=== PATIENT | female | born 1960 | race Asian ===

== ENCOUNTER 2017-02-21 05:15 | Emergency (ER) | payer BC ==
[~2017-02-21] VITALS: Ht 162.6 cm; Wt 91.0 kg
[~2017-02-21 05:15] MED LIST: LOSA100T14 PO
[2017-02-21] MEDS ORDERED: ONDANSETRON HCL 4MG/2ML VIAL IV STA (07:23)
[2017-02-21] MEDS ORDERED: MORPHINE SULFATE 4 MG/ML CPJ (NOT FOR IM USE) IV STA (07:23)
[2017-02-21 07:40] LABS: EOSINOPHILS % 2.5 % (0.0-5.0); HEMOGLOBIN. 13.7 g/dL (12.0-16.0); LYMPHOCYTES % 10.6 % (20.0-50.0); MEAN CORPUSCULAR HEMOGLOBIN 29.5 pg (28.0-32.0); MEAN CORPUSCULAR HGB CONC 34.2 g/dL (31.0-37.0); MEAN CORPUSCULAR VOLUME 86.2 fL (81.0-99.0); MONOCYTES % 3.7 % (2.0-8.0); NEUTROPHILS % 82.2 % (40.0-76.0); PLATELET 246 x1000/uL (130-400); RED BLOOD CELL COUNT 4.65 mill/uL (4.2-5.4); RED CELL DISTRIBUTION WIDTH 12.7 % (11.6-14.6); WHITE BLOOD COUNT 12.7 x1000/uL (4.5-11.0)
[2017-02-21 07:55] LABS: ALANINE AMINOTRANSFERASE 25 IU/L (13-61); ALBUMIN 3.5 g/dL (3.4-5.0); ANION GAP 13; CALCIUM 9.5 mg/dL (8.5-10.1); CARBON DIOXIDE 25 mEq/L (21-32); CHLORIDE 107 mEq/L (98-107); INDEX HEMOLYSI 1 (1-3); INDEX ICTERIC 1 (1-4); INDEX LIPEMIC 1 (1-3); LIPASE 386 IU/L (73-393); UREA NITROGEN BLOOD 18 mg/dL (7-21); eGFR 43 mL/min (>60)
[2017-02-21 08:33] LABS: CLARITY URINE CLEAR (CLEAR); COLOR URINE YELLOW (YELLOW); GLUCOSE URINE NEGATIVE (NEGATIVE); KETONES URINE NEGATIVE (NEGATIVE); LEUKOCYTE ESTERASE URINE NEGATIVE (NEGATIVE); NITRITE URINE NEGATIVE (NEGATIVE); OCCULT BLOOD URINE NEGATIVE (NEGATIVE); PROTEIN URINE NEGATIVE (NEGATIVE); UROBILINOGEN URINE 0.2 E.U./dL (0.2-1.0)
[2017-02-21] MEDS ORDERED: MORPHINE SULFATE 4 MG/ML CPJ (NOT FOR IM USE) IV ONE (10:00)
[2017-02-21] MEDS ORDERED: VISCOUS LIDOCAINE 2% 15 ML UDC MM ONE (11:00)
[2017-02-21] MEDS ORDERED: MAGNESIUM/ALUMINUM HYDROXIDE/SIMETHICONE 30ML UDC PO ONE (11:00)
[2017-02-21 12:27] VITALS: BP 127/91
[2017-02-21] MEDS ORDERED: PANTOPRAZOLE SODIUM 40 MG/VIAL IV ONE (13:00)
== END 2017-02-21 13:19 | disposition home or self-care (01) ==
LOC: ER 05:16
DX: K29.00 Acute gastritis without bleeding (principal); R10.13 Epigastric pain; I10 Essential (primary) hypertension
CPT/HCPCS: 36415; 74176; 76705; 80053; 81003; 83690; 85025; 96374; 96375; 96376; 99285; J2270; J2405; Z7610; C9113

== ENCOUNTER → 2017-03-04 | Outpatient (CLI) | payer BC | END | disposition home or self-care (01) | LOC: MAMMO 11:08 | PROVIDERS: ATTEND Internal Medicine | DX: Z12.31 Encounter for screening mammogram for malignant neoplasm of breast (principal) | CPT/HCPCS: G0202 ==

== ENCOUNTER → 2017-09-29 | Outpatient (CLI) | payer BC ==
[2017-09-29 20:38] LABS: BASOPHILS % 1.1 % (0.0-2.0); EOSINOPHILS % 5.4 % (0.0-5.0); HEMATOCRIT. 34.9 % (36.0-48.0); LYMPHOCYTES % 28.5 % (20.0-50.0); MEAN CORPUSCULAR HEMOGLOBIN 28.9 pg (28.0-32.0); MEAN CORPUSCULAR VOLUME 84.1 fL (81.0-99.0); MEAN PLATELET VOLUME 8.3 fl (7.4-10.4); MONOCYTES % 5.9 % (2.0-8.0); NEUTROPHILS % 59.1 % (40.0-76.0); PLATELET 262 x1000/uL (130-400); RED BLOOD CELL COUNT 4.15 mill/uL (4.2-5.4); RED CELL DISTRIBUTION WIDTH 13.4 % (11.6-14.6)
[2017-09-29 20:44] LABS: CLARITY URINE CLEAR (CLEAR); COLOR URINE YELLOW (YELLOW); GLUCOSE URINE NEGATIVE (NEGATIVE); KETONES URINE NEGATIVE (NEGATIVE); LEUKOCYTE ESTERASE URINE TRACE (NEGATIVE); NITRITE URINE NEGATIVE (NEGATIVE); OCCULT BLOOD URINE NEGATIVE (NEGATIVE); PH URINE 5.5 (4.5-8.0); PROTEIN URINE NEGATIVE (NEGATIVE); UROBILINOGEN URINE 0.2 E.U./dL (0.2-1.0)
[2017-09-29 20:47] LABS: CHLORIDE 107 mEq/L (98-107)
[2017-09-29 20:58] LABS: CARBON DIOXIDE 24 mEq/L (21-32); HDL CHOLESTEROL 45 mg/dL (40-59); LDL CHOLESTEROL 92 mg/dL (5-100)
[2017-10-01 13:12] LABS: VITAMIN D 25-OH 67.2 ng/mL (30.0-100.0)
[2017-10-01 19:12] LABS: ANTI-DNA DOUBLE STRANDED QUANT 1 IU/mL (0-9); ANTI-NUCLEAR ANTIBODIES DIRECT Positive (Negative)
[2017-10-02 05:32] LABS: COMPLEMENT C3 145 mg/dL (82-167)
[2017-10-02 19:12] LABS: RNP ANTIBODY < 0.2 AI (0.0-0.9); SJOGRENS ANTI SS-B < 0.2 AI (0.0-0.9); SMITH ANTIBODY < 0.2 AI (0.0-0.9)
== END | disposition home or self-care (01) ==
LOC: LAB 15:58
PROVIDERS: ATTEND Internal Medicine
DX: E66.9 Obesity, unspecified (principal); R80.9 Proteinuria, unspecified; R76.0 Raised antibody titer
CPT/HCPCS: 36415; 80053; 80061; 81001; 82306; 84443; 84550; 85025; 86038; 86160; 86225; 86235

== ENCOUNTER → 2017-09-30 | Outpatient (CLI) | payer BC | END | disposition home or self-care (01) | LOC: US 16:00 | PROVIDERS: ATTEND Internal Medicine | DX: I12.9 Hypertensive chronic kidney disease with stage 1 through stage 4 chronic kidney disease, or unspecified chronic kidney disease (principal); N18.3 Chronic kidney disease, stage 3 (moderate); M79.605 Pain in left leg | CPT/HCPCS: 36415; 83970; 93971 ==

== ENCOUNTER → 2017-10-09 | Outpatient (CLI) | payer BC | END | disposition home or self-care (01) | LOC: LAB 14:44 | PROVIDERS: ATTEND Internal Medicine | DX: I12.9 Hypertensive chronic kidney disease with stage 1 through stage 4 chronic kidney disease, or unspecified chronic kidney disease (principal); N18.3 Chronic kidney disease, stage 3 (moderate) | CPT/HCPCS: 82570; 84156 ==

== ENCOUNTER → 2018-02-04 | Outpatient (CLI) | payer BC ==
[2018-02-04 21:45] LABS: CHLORIDE 109 mEq/L (98-107)
[2018-02-04 21:54] LABS: C REACTIVE PROTEIN QUANT 2.3 mg/L (0.0-3.0)
== END | disposition home or self-care (01) ==
LOC: LAB 20:39
PROVIDERS: ATTEND Internal Medicine
DX: M10.072 Idiopathic gout, left ankle and foot (principal)
CPT/HCPCS: 36415; 80053; 84550; 85651; 86140

== ENCOUNTER → 2018-07-04 | Emergency (ER) | payer BC, OTHER ==
[~2018-07-04] VITALS: Ht 162.6 cm; Wt 90.0 kg
[2018-07-04 16:15] VITALS: BP 132/76
[2018-07-04 17:15] LABS: HEPATITIS B SURFACE ANTIGEN NEGATIVE
== END | disposition left against medical advice (07) ==
LOC: ER 22:02
DX: Z53.21 Procedure and treatment not carried out due to patient leaving prior to being seen by health care provider (principal)
CPT/HCPCS: 36415; 86703; 86803; 87340; 99284

== ENCOUNTER → 2018-09-15 | Outpatient (CLI) | payer BC ==
[2018-09-15 12:56] LABS: BASOPHILS % 1.3 % (0.0-2.0); EOSINOPHILS % 4.6 % (0.0-5.0); HEMATOCRIT. 37.4 % (36.0-48.0); HEMOGLOBIN. 12.8 g/dL (12.0-16.0); LYMPHOCYTES % 29.9 % (20.0-50.0); MEAN CORPUSCULAR HEMOGLOBIN 29.3 pg (28.0-32.0); MEAN CORPUSCULAR VOLUME 85.8 fL (81.0-99.0); MEAN PLATELET VOLUME 8.1 fl (7.4-10.4); MONOCYTES % 7.2 % (2.0-8.0); PLATELET 242 x1000/uL (130-400); RED BLOOD CELL COUNT 4.36 mill/uL (4.2-5.4); RED CELL DISTRIBUTION WIDTH 13.3 % (11.6-14.6)
[2018-09-15 13:05] LABS: CHLORIDE 109 mEq/L (98-107)
[2018-09-15 13:11] LABS: HDL CHOLESTEROL 50 mg/dL (40-59); LDL CHOLESTEROL 95 mg/dL (5-100)
[2018-09-15 14:21] LABS: CLARITY URINE CLEAR (CLEAR); COLOR URINE YELLOW (YELLOW); KETONES URINE NEGATIVE (NEGATIVE); LEUKOCYTE ESTERASE URINE NEGATIVE (NEGATIVE); NITRITE URINE NEGATIVE (NEGATIVE); OCCULT BLOOD URINE NEGATIVE (NEGATIVE); PH URINE 6.5 (4.5-8.0); PROTEIN URINE NEGATIVE (NEGATIVE); SPECIFIC GRAVITY URINE 1.005 (1.005-1.030); UROBILINOGEN URINE 0.2 E.U./dL (0.2-1.0)
[2018-09-17 08:15] LABS: *CREATININE RANDOM URINE 34.6 mg/dL (Not Estab.); MICROALBUMIN RANDOM URINE 48.4 ug/mL (Not Estab.)
== END | disposition home or self-care (01) ==
LOC: LAB 12:24
PROVIDERS: ATTEND Internal Medicine
DX: Z00.01 Encounter for general adult medical examination with abnormal findings (principal); I10 Essential (primary) hypertension
CPT/HCPCS: 36415; 80061; 82043; 82570; 83036

== ENCOUNTER → 2019-01-26 | Outpatient (CLI) | payer BC ==
[2019-01-26 13:45] LABS: CLARITY URINE CLEAR (CLEAR); COLOR URINE YELLOW (YELLOW); KETONES URINE NEGATIVE (NEGATIVE); LEUKOCYTE ESTERASE URINE NEGATIVE (NEGATIVE); NITRITE URINE NEGATIVE (NEGATIVE); OCCULT BLOOD URINE NEGATIVE (NEGATIVE); PROTEIN URINE NEGATIVE (NEGATIVE); SPECIFIC GRAVITY URINE 1.004 (1.005-1.030); UROBILINOGEN URINE 0.2 E.U./dL (0.2-1.0)
[2019-01-26 13:47] LABS: CHLORIDE 110 mEq/L (98-107)
== END | disposition home or self-care (01) ==
LOC: LAB 13:04
PROVIDERS: ATTEND Internal Medicine
DX: R76.0 Raised antibody titer (principal); R80.9 Proteinuria, unspecified; I10 Essential (primary) hypertension
CPT/HCPCS: 36415; 82570; 84156

== ENCOUNTER → 2019-08-19 | Outpatient (CLI) | payer BC ==
[~2019-08-19] MED LIST changes: -LOSA100T14 PO; +LOSA100T32 PO
[2019-08-19 21:47] LABS: CLARITY URINE CLEAR (CLEAR); COLOR URINE YELLOW (YELLOW); KETONES URINE NEGATIVE (NEGATIVE); LEUKOCYTE ESTERASE URINE NEGATIVE (NEGATIVE); NITRITE URINE NEGATIVE (NEGATIVE); OCCULT BLOOD URINE NEGATIVE (NEGATIVE); PH URINE 5.5 (4.5-8.0); PROTEIN URINE NEGATIVE (NEGATIVE); SPECIFIC GRAVITY URINE 1.011 (1.005-1.030); UROBILINOGEN URINE 0.2 E.U./dL (0.2-1.0)
[2019-08-19 22:00] LABS: BASOPHILS % 0.9 % (0.0-2.0); EOSINOPHILS % 6.1 % (0.0-5.0); HEMATOCRIT. 38.1 % (36.0-48.0); HEMOGLOBIN. 12.7 g/dL (12.0-16.0); LYMPHOCYTES % 32.5 % (20.0-50.0); MEAN CORPUSCULAR HEMOGLOBIN 29.3 pg (28.0-32.0); MEAN CORPUSCULAR VOLUME 88.3 fL (81.0-99.0); MEAN PLATELET VOLUME 8.1 fl (7.4-10.4); MONOCYTES % 7.1 % (2.0-8.0); NEUTROPHILS % 53.4 % (40.0-76.0); PLATELET 263 x1000/uL (130-400); RED BLOOD CELL COUNT 4.32 mill/uL (4.2-5.4)
[2019-08-19 22:10] LABS: CHLORIDE 108 mEq/L (98-107)
[2019-08-21 10:10] LABS: *CREATININE RANDOM URINE 67.9 mg/dL (Not Estab.); MICROALBUMIN RANDOM URINE 38.4 ug/mL (Not Estab.)
[2019-08-23 13:11] LABS: COMPLEMENT C3 135 mg/dL (82-167)
[2019-08-24 04:07] LABS: ANTI-CENTROMERE B ANTIBODIES < 0.2 AI (0.0-0.9); ANTI-SCLERODERMA-70 AB <0.2 AI (0.0-0.9); RNP ANTIBODY < 0.2 AI (0.0-0.9); SMITH ANTIBODY < 0.2 AI (0.0-0.9)
[2019-08-24 13:10] LABS: ANTI-DNA DOUBLE STRANDED QUANT < 1 IU/mL (0-9); SJOGRENS ANTI SS-A 2.7 AI (0.0-0.9); SJOGRENS ANTI SS-B 0.4 AI (0.0-0.9)
== END | disposition home or self-care (01) ==
LOC: US 12:50
PROVIDERS: ATTEND Internal Medicine
DX: R22.43 Localized swelling, mass and lump, lower limb, bilateral (principal); R76.0 Raised antibody titer; M79.605 Pain in left leg; M79.604 Pain in right leg; M1A.00X0 Idiopathic chronic gout, unspecified site, without tophus (tophi)
CPT/HCPCS: 36415; 81003; 82043; 82570; 84550; 86160; 86225; 86235; 93970

== ENCOUNTER 2019-09-02 18:42 | Emergency (ER) | payer BC ==
[~2019-09-02] VITALS: Ht 162.6 cm; Wt 95.0 kg
[2019-09-02] MEDS ORDERED: ONDANSETRON HCL 4MG/2ML INJ IV STA (20:06)
[2019-09-02] MEDS ORDERED: SODIUM CHLORIDE 0.9% 1,000 ML IV ONE (20:06)
[2019-09-02] MEDS ORDERED: MECLIZINE 25MG TABLET PO ONE (20:15)
[2019-09-02 20:23] LABS: BASOPHILS % 1.2 % (0.0-2.0); EOSINOPHILS % 4.9 % (0.0-5.0); HEMATOCRIT. 37.9 % (36.0-48.0); HEMOGLOBIN. 12.7 g/dL (12.0-16.0); LYMPHOCYTES % 23.8 % (20.0-50.0); MEAN CORPUSCULAR HEMOGLOBIN 29.1 pg (28.0-32.0); MEAN CORPUSCULAR VOLUME 87.1 fL (81.0-99.0); MONOCYTES % 5.8 % (2.0-8.0); NEUTROPHILS % 64.3 % (40.0-76.0); PLATELET 234 x1000/uL (130-400); RED BLOOD CELL COUNT 4.35 mill/uL (4.2-5.4)
[2019-09-02 20:28] LABS: CHLORIDE 108 mEq/L (98-107)
[2019-09-02 22:44] VITALS: BP 132/72
== END 2019-09-02 22:46 | disposition home or self-care (01) ==
LOC: ER 18:42
DX: R42 Dizziness and giddiness (principal); R11.0 Nausea; I10 Essential (primary) hypertension
CPT/HCPCS: 36415; 71045; 80053; 82962; 83880; 84484; 85025; 85610; 93005; 96361; 96374; 99284; J2405; J7030; J8597; Z7610

== ENCOUNTER → 2020-01-09 | Outpatient (CLI) | payer BC ==
[2020-01-09 21:34] LABS: BASOPHILS % 1.2 % (0.0-2.0); HEMATOCRIT. 36.3 % (36.0-48.0); HEMOGLOBIN. 12.5 g/dL (12.0-16.0); LYMPHOCYTES % 24.6 % (20.0-50.0); MEAN CORPUSCULAR HEMOGLOBIN 29.4 pg (28.0-32.0); MEAN CORPUSCULAR VOLUME 85.6 fL (81.0-99.0); MEAN PLATELET VOLUME 7.7 fl (7.4-10.4); MONOCYTES % 7.1 % (2.0-8.0); NEUTROPHILS % 64.1 % (40.0-76.0); PLATELET 320 x1000/uL (130-400); RED BLOOD CELL COUNT 4.24 mill/uL (4.2-5.4); RED CELL DISTRIBUTION WIDTH 12.7 % (11.6-14.6)
[2020-01-09 21:42] LABS: CHLORIDE 109 mEq/L (98-107)
[2020-01-09 21:50] LABS: LDL CHOLESTEROL 95 mg/dL (5-100)
[2020-01-09 21:51] LABS: HDL CHOLESTEROL 45 mg/dL (40-59)
[2020-01-09 22:06] LABS: CLARITY URINE CLEAR (CLEAR); COLOR URINE YELLOW (YELLOW); KETONES URINE NEGATIVE (NEGATIVE); LEUKOCYTE ESTERASE URINE NEGATIVE (NEGATIVE); NITRITE URINE NEGATIVE (NEGATIVE); OCCULT BLOOD URINE NEGATIVE (NEGATIVE); PH URINE 5.5 (4.5-8.0); PROTEIN URINE TRACE (NEGATIVE); SPECIFIC GRAVITY URINE 1.015 (1.005-1.030); UROBILINOGEN URINE 0.2 E.U./dL (0.2-1.0)
== END | disposition home or self-care (01) ==
LOC: LAB 19:18
PROVIDERS: ATTEND Internal Medicine
DX: Z00.00 Encounter for general adult medical examination without abnormal findings (principal); N18.3 Chronic kidney disease, stage 3 (moderate)
CPT/HCPCS: 36415; 80053; 80061; 81003; 82043; 82306; 82570; 83036; 84550; 85025

== ENCOUNTER 2020-02-07 02:33 | Emergency (ER) | payer BC ==
[~2020-02-07] VITALS: Ht 157.5 cm; Wt 91.0 kg
[2020-02-07] MEDS ORDERED: HYDROCODONE/ACETAMINOPHEN 5/325MG TABLET PO ONE (03:15)
[2020-02-07] MEDS ORDERED: ONDANSETRON 4MG ODT PO ONE (03:15)
[2020-02-07 04:09] VITALS: BP 125/71
== END 2020-02-07 04:10 | disposition home or self-care (01) ==
LOC: ER 02:33
DX: G57.83 Other specified mononeuropathies of bilateral lower limbs (principal); I10 Essential (primary) hypertension
CPT/HCPCS: 99283; Q0162

== ENCOUNTER 2020-02-10 19:50 | Emergency (ER) | payer BC ==
[~2020-02-10] VITALS: Ht 157.5 cm; Wt 90.0 kg
[2020-02-10] MEDS ORDERED: IBUPROFEN 600MG TABLET PO ONE (23:00)
[2020-02-11 00:34] VITALS: BP 125/79
== END 2020-02-11 00:35 | disposition home or self-care (01) ==
LOC: ER 19:50
DX: M25.562 Pain in left knee (principal); I10 Essential (primary) hypertension; Z98.890 Other specified postprocedural states
CPT/HCPCS: 73562; 73630; 99284

== ENCOUNTER → 2020-02-22 | Outpatient (CLI) | payer BC ==
[2020-02-22 18:54] LABS: BASOPHILS % 1.1 % (0.0-2.0); EOSINOPHILS % 2.1 % (0.0-5.0); HEMATOCRIT. 32.1 % (36.0-48.0); LYMPHOCYTES % 18.7 % (20.0-50.0); MEAN CORPUSCULAR HEMOGLOBIN 29.6 pg (28.0-32.0); MEAN CORPUSCULAR VOLUME 86.1 fL (81.0-99.0); MEAN PLATELET VOLUME 7.8 fl (7.4-10.4); MONOCYTES % 6.8 % (2.0-8.0); NEUTROPHILS % 71.3 % (40.0-76.0); PLATELET 361 x1000/uL (130-400); RED BLOOD CELL COUNT 3.73 mill/uL (4.2-5.4)
[2020-02-22 21:02] LABS: CHLORIDE 105 mEq/L (98-107)
[2020-02-22 21:07] LABS: PHOSPHORUS 3.5 mg/dL (2.5-4.9)
== END | disposition home or self-care (01) ==
LOC: LAB 16:53
PROVIDERS: ATTEND Internal Medicine
DX: I12.9 Hypertensive chronic kidney disease with stage 1 through stage 4 chronic kidney disease, or unspecified chronic kidney disease (principal); N18.3 Chronic kidney disease, stage 3 (moderate); M10.062 Idiopathic gout, left knee
CPT/HCPCS: 36415; 80053; 82306; 83970; 84100; 84550; 85025; 85651; 86140; 89060

== ENCOUNTER → 2020-04-03 | Outpatient (CLI) | payer BC ==
[2020-04-03 20:56] LABS: BASOPHILS % 1.5 % (0.0-2.0); HEMOGLOBIN. 12.2 g/dL (12.0-16.0); LYMPHOCYTES % 35.5 % (20.0-50.0); MEAN CORPUSCULAR HEMOGLOBIN 30.2 pg (28.0-32.0); MEAN CORPUSCULAR VOLUME 89.3 fL (81.0-99.0); MEAN PLATELET VOLUME 7.9 fl (7.4-10.4); MONOCYTES % 8.5 % (2.0-8.0); NEUTROPHILS % 49.5 % (40.0-76.0); PLATELET 226 x1000/uL (130-400); RED BLOOD CELL COUNT 4.04 mill/uL (4.2-5.4); RED CELL DISTRIBUTION WIDTH 14.9 % (11.6-14.6)
[2020-04-03 21:08] LABS: CHLORIDE 113 mEq/L (98-107)
[2020-04-03 22:23] LABS: CLARITY URINE CLEAR (CLEAR); COLOR URINE YELLOW (YELLOW); KETONES URINE NEGATIVE (NEGATIVE); LEUKOCYTE ESTERASE URINE 1+ (NEGATIVE); NITRITE URINE NEGATIVE (NEGATIVE); OCCULT BLOOD URINE NEGATIVE (NEGATIVE); PH URINE 5.5 (4.5-8.0); PROTEIN URINE NEGATIVE (NEGATIVE); SPECIFIC GRAVITY URINE 1.007 (1.005-1.030); UROBILINOGEN URINE 0.2 E.U./dL (0.2-1.0)
== END | disposition home or self-care (01) ==
LOC: LAB 20:28
PROVIDERS: ATTEND Internal Medicine
DX: M1A.00X0 Idiopathic chronic gout, unspecified site, without tophus (tophi) (principal); R31.9 Hematuria, unspecified
CPT/HCPCS: 36415; 80053; 81003; 84550; 85025; 87077; 87186

== ENCOUNTER → 2020-05-20 | Outpatient (CLI) | payer BC ==
[2020-05-20 17:39] LABS: CHLORIDE 111 mEq/L (98-107)
== END | disposition home or self-care (01) ==
LOC: LAB 16:49
PROVIDERS: ATTEND Internal Medicine
DX: M1A.00X0 Idiopathic chronic gout, unspecified site, without tophus (tophi) (principal)
CPT/HCPCS: 36415; 80053; 84550

== ENCOUNTER → 2020-06-27 | Outpatient (CLI) | payer BC ==
[2020-06-27 13:53] LABS: CHLORIDE 112 mEq/L (98-107)
== END | disposition home or self-care (01) ==
LOC: LAB 13:20
PROVIDERS: ATTEND Internal Medicine
DX: M1A.00X0 Idiopathic chronic gout, unspecified site, without tophus (tophi) (principal)
CPT/HCPCS: 36415; 80053; 84550

== ENCOUNTER → 2020-07-31 | Outpatient (CLI) | payer BC ==
[2020-07-31 16:48] LABS: CHLORIDE 106 mEq/L (98-107)
== END | disposition home or self-care (01) ==
LOC: LAB 13:27
PROVIDERS: ATTEND Internal Medicine
DX: M1A.00X0 Idiopathic chronic gout, unspecified site, without tophus (tophi) (principal)
CPT/HCPCS: 36415; 80053; 84550

== ENCOUNTER → 2020-09-11 | Outpatient (CLI) | payer BC ==
[2020-09-11 16:20] LABS: CHLORIDE 110 mEq/L (98-107)
== END | disposition home or self-care (01) ==
LOC: LAB 15:26
PROVIDERS: ATTEND Internal Medicine
DX: M1A.00X0 Idiopathic chronic gout, unspecified site, without tophus (tophi) (principal)
CPT/HCPCS: 36415; 80053; 84550

== ENCOUNTER → 2020-11-13 | Outpatient (CLI) | payer BC ==
[2020-11-13 18:13] LABS: CHLORIDE 110 mEq/L (98-107)
[2020-11-13 18:17] LABS: BASOPHILS % 1.3 % (0.0-2.0); EOSINOPHILS % 6.5 % (0.0-5.0); HEMATOCRIT. 37.1 % (36.0-48.0); HEMOGLOBIN. 12.3 g/dL (12.0-16.0); LYMPHOCYTES % 28.4 % (20.0-50.0); MEAN CORPUSCULAR HEMOGLOBIN 30.7 pg (28.0-32.0); MEAN CORPUSCULAR VOLUME 92.8 fL (81.0-99.0); MEAN PLATELET VOLUME 8.5 fl (7.4-10.4); MONOCYTES % 5.4 % (2.0-8.0); NEUTROPHILS % 58.4 % (40.0-76.0); PLATELET 222 x1000/uL (130-400); RED CELL DISTRIBUTION WIDTH 14.4 % (11.6-14.6)
== END | disposition home or self-care (01) ==
LOC: LABT 16:16
PROVIDERS: ATTEND Internal Medicine
DX: M1A.00X0 Idiopathic chronic gout, unspecified site, without tophus (tophi) (principal)
CPT/HCPCS: 36415; 80053; 84550; 85025

== ENCOUNTER → 2021-01-30 | Outpatient (CLI) | payer BC ==
[2021-01-30 12:02] LABS: CHLORIDE 108 mEq/L (98-107)
[2021-01-30 12:10] LABS: PHOSPHORUS 3.5 mg/dL (2.5-4.9)
== END | disposition home or self-care (01) ==
LOC: LAB 10:46
PROVIDERS: ATTEND Internal Medicine
DX: I12.9 Hypertensive chronic kidney disease with stage 1 through stage 4 chronic kidney disease, or unspecified chronic kidney disease (principal); N18.30 Chronic kidney disease, stage 3 unspecified; M1A.00X0 Idiopathic chronic gout, unspecified site, without tophus (tophi)
CPT/HCPCS: 36415; 80053; 82306; 83970; 84100; 84550

== ENCOUNTER → 2021-04-16 | Outpatient (CLI) | payer BC | END | disposition home or self-care (01) | LOC: LAB 14:34 | PROVIDERS: ATTEND Internal Medicine | DX: R74.01 Elevation of levels of liver transaminase levels (principal); M1A.00X0 Idiopathic chronic gout, unspecified site, without tophus (tophi) | CPT/HCPCS: 36415; 80048; 80076; 84550 ==

== ENCOUNTER → 2021-10-03 | Outpatient (CLI) | payer BC ==
[2021-10-04 18:35] LABS: BASOPHILS % 1.2 % (0.0-2.0); EOSINOPHILS % 6.4 % (0.0-5.0); HEMOGLOBIN. 11.6 g/dL (12.0-16.0); LYMPHOCYTES % 29.8 % (20.0-50.0); MEAN CORPUSCULAR HEMOGLOBIN 30.5 pg (28.0-32.0); MEAN CORPUSCULAR VOLUME 92.4 fL (81.0-99.0); MEAN PLATELET VOLUME 7.8 fl (7.4-10.4); MONOCYTES % 5.3 % (2.0-8.0); NEUTROPHILS % 57.3 % (40.0-76.0); PLATELET 228 x1000/uL (130-400); RED BLOOD CELL COUNT 3.79 mill/uL (4.2-5.4); RED CELL DISTRIBUTION WIDTH 14.9 % (11.6-14.6)
[2021-10-04 18:56] LABS: CHLORIDE 106 mEq/L (98-107)
== END | disposition home or self-care (01) ==
LOC: LAB 12:43
PROVIDERS: ATTEND Internal Medicine
DX: J98.11 Atelectasis (principal); I12.9 Hypertensive chronic kidney disease with stage 1 through stage 4 chronic kidney disease, or unspecified chronic kidney disease; N18.9 Chronic kidney disease, unspecified
CPT/HCPCS: 71046

== ENCOUNTER → 2021-11-05 | Outpatient (CLI) | payer BC ==
[2021-11-05 21:20] LABS: BASOPHILS % 0.8 % (0.0-2.0); EOSINOPHILS % 4.8 % (0.0-5.0); HEMATOCRIT. 35.5 % (36.0-48.0); HEMOGLOBIN. 11.7 g/dL (12.0-16.0); LYMPHOCYTES % 30.3 % (20.0-50.0); MEAN CORPUSCULAR HEMOGLOBIN 30.2 pg (28.0-32.0); MEAN CORPUSCULAR VOLUME 91.7 fL (81.0-99.0); MEAN PLATELET VOLUME 8.4 fl (7.4-10.4); MONOCYTES % 6.8 % (2.0-8.0); NEUTROPHILS % 57.3 % (40.0-76.0); PLATELET 255 x1000/uL (130-400); RED BLOOD CELL COUNT 3.87 mill/uL (4.2-5.4); RED CELL DISTRIBUTION WIDTH 14.1 % (11.6-14.6)
[2021-11-05 21:26] LABS: CHLORIDE 111 mEq/L (98-107)
[2021-11-05 21:32] LABS: PHOSPHORUS 3.3 mg/dL (2.5-4.9)
[2021-11-05 22:09] LABS: CLARITY URINE CLEAR (CLEAR); COLOR URINE YELLOW (YELLOW); KETONES URINE NEGATIVE (NEGATIVE); LEUKOCYTE ESTERASE URINE 2+ (NEGATIVE); NITRITE URINE NEGATIVE (NEGATIVE); OCCULT BLOOD URINE NEGATIVE (NEGATIVE); PROTEIN URINE NEGATIVE (NEGATIVE); SPECIFIC GRAVITY URINE 1.014 (1.005-1.030); UROBILINOGEN URINE 0.2 E.U./dL (0.2-1.0)
== END | disposition home or self-care (01) ==
LOC: LAB 13:17
PROVIDERS: ATTEND Internal Medicine
DX: I12.9 Hypertensive chronic kidney disease with stage 1 through stage 4 chronic kidney disease, or unspecified chronic kidney disease (principal); N18.32 Chronic kidney disease, stage 3b; M1A.00X0 Idiopathic chronic gout, unspecified site, without tophus (tophi)
CPT/HCPCS: 36415; 80053; 81003; 82306; 83970; 84100; 85025

== ENCOUNTER → 2021-11-22 | Outpatient (CLI) | payer BC ==
[2021-11-22 22:09] LABS: CLARITY URINE CLEAR (CLEAR); COLOR URINE YELLOW (YELLOW); KETONES URINE NEGATIVE (NEGATIVE); LEUKOCYTE ESTERASE URINE 2+ (NEGATIVE); NITRITE URINE NEGATIVE (NEGATIVE); OCCULT BLOOD URINE NEGATIVE (NEGATIVE); PROTEIN URINE NEGATIVE (NEGATIVE); SPECIFIC GRAVITY URINE 1.012 (1.005-1.030); UROBILINOGEN URINE 0.2 E.U./dL (0.2-1.0)
== END | disposition home or self-care (01) ==
LOC: LAB 21:34
PROVIDERS: ATTEND Internal Medicine
DX: R30.0 Dysuria (principal)
CPT/HCPCS: 81003

== ENCOUNTER → 2021-12-05 | Outpatient (CLI) | payer BC ==
[~2021-12-05] MED LIST changes: +ALBUTEROL (0.083%) 2.5MG/3ML NEB ONE
== END | disposition home or self-care (01) ==
LOC: PF 11:07
PROVIDERS: ATTEND Internal Medicine Critical Care Medicine
DX: R06.02 Shortness of breath (principal); R06.2 Wheezing; Z20.822 Contact with and (suspected) exposure to COVID-19
CPT/HCPCS: 87426; 94060; 94727; 94729

== ENCOUNTER → 2022-01-14 | Outpatient (CLI) | payer BC ==
[~2022-01-14] MED LIST changes: -ALBUTEROL (0.083%) 2.5MG/3ML NEB ONE
[2022-01-14 12:37] LABS: CHLORIDE 110 mEq/L (98-107)
== END | disposition home or self-care (01) ==
LOC: LAB 11:59
PROVIDERS: ATTEND Internal Medicine
DX: I12.9 Hypertensive chronic kidney disease with stage 1 through stage 4 chronic kidney disease, or unspecified chronic kidney disease (principal); R73.9 Hyperglycemia, unspecified; N18.32 Chronic kidney disease, stage 3b; R00.2 Palpitations; M1A.00X0 Idiopathic chronic gout, unspecified site, without tophus (tophi)
CPT/HCPCS: 36415; 80053; 83036; 84550; 93005

== ENCOUNTER → 2022-04-11 | Outpatient (CLI) | payer BC ==
[2022-04-11 19:17] LABS: CHLORIDE 106 mEq/L (98-107)
[2022-04-11 19:22] LABS: C REACTIVE PROTEIN QUANT 1.9 mg/L (0.0-3.0); HDL CHOLESTEROL 49 mg/dL (40-59); LDL CHOLESTEROL 82 mg/dL (5-100)
[2022-04-11 19:26] LABS: CLARITY URINE CLEAR (CLEAR); COLOR URINE YELLOW (YELLOW); KETONES URINE NEGATIVE (NEGATIVE); LEUKOCYTE ESTERASE URINE TRACE (NEGATIVE); NITRITE URINE NEGATIVE (NEGATIVE); OCCULT BLOOD URINE NEGATIVE (NEGATIVE); PH URINE 6.5 (4.5-8.0); PROTEIN URINE NEGATIVE (NEGATIVE); SPECIFIC GRAVITY URINE 1.007 (1.005-1.030); UROBILINOGEN URINE 0.2 E.U./dL (0.2-1.0)
[2022-04-14 08:12] LABS: MICROALBUMIN RANDOM URINE 18.3 ug/mL (Not Estab.)
== END | disposition home or self-care (01) ==
LOC: LAB 15:54
PROVIDERS: ATTEND Internal Medicine
DX: Z13.220 Encounter for screening for lipoid disorders (principal); R76.0 Raised antibody titer
CPT/HCPCS: 36415; 80053; 80061; 81003; 82043; 82570; 84550; 85651; 86140

== ENCOUNTER → 2022-06-19 | Outpatient (CLI) | payer BC ==
[2022-06-19 22:16] LABS: BASOPHILS % 0.8 % (0.0-2.0); EOSINOPHILS % 5.6 % (0.0-5.0); HEMATOCRIT. 36.6 % (36.0-48.0); HEMOGLOBIN. 12.2 g/dL (12.0-16.0); MEAN CORPUSCULAR HEMOGLOBIN 30.6 pg (28.0-32.0); MEAN CORPUSCULAR VOLUME 91.7 fL (81.0-99.0); MONOCYTES % 6.4 % (2.0-8.0); NEUTROPHILS % 57.2 % (40.0-76.0); PLATELET 243 x1000/uL (130-400); RED BLOOD CELL COUNT 3.99 mill/uL (4.2-5.4); RED CELL DISTRIBUTION WIDTH 14.1 % (11.6-14.6)
[2022-06-19 22:21] LABS: CLARITY URINE CLEAR (CLEAR); COLOR URINE YELLOW (YELLOW); KETONES URINE NEGATIVE (NEGATIVE); LEUKOCYTE ESTERASE URINE NEGATIVE (NEGATIVE); NITRITE URINE NEGATIVE (NEGATIVE); OCCULT BLOOD URINE NEGATIVE (NEGATIVE); PH URINE 6.5 (4.5-8.0); PROTEIN URINE NEGATIVE (NEGATIVE); SPECIFIC GRAVITY URINE 1.008 (1.005-1.030); UROBILINOGEN URINE 0.2 E.U./dL (0.2-1.0)
[2022-06-19 22:32] LABS: CHLORIDE 107 mEq/L (98-107)
== END | disposition home or self-care (01) ==
LOC: LAB 14:46
PROVIDERS: ATTEND Internal Medicine
DX: I12.9 Hypertensive chronic kidney disease with stage 1 through stage 4 chronic kidney disease, or unspecified chronic kidney disease (principal); E66.9 Obesity, unspecified; M1A.00X0 Idiopathic chronic gout, unspecified site, without tophus (tophi)
CPT/HCPCS: 36415; 80053; 81003; 84550; 85025

== ENCOUNTER → 2022-08-05 | Outpatient (CLI) | payer BC ==
[2022-08-05 15:43] LABS: CHLORIDE 107 mEq/L (98-107)
== END | disposition home or self-care (01) ==
LOC: LAB 14:29
PROVIDERS: ATTEND Internal Medicine
DX: I10 Essential (primary) hypertension (principal); M1A.00X0 Idiopathic chronic gout, unspecified site, without tophus (tophi)
CPT/HCPCS: 36415; 80053; 84550

== ENCOUNTER → 2022-12-02 | Outpatient (CLI) | payer BC ==
[2022-12-02 20:49] LABS: CHLORIDE 107 mEq/L (98-107)
== END | disposition home or self-care (01) ==
LOC: LAB 13:37
PROVIDERS: ATTEND Internal Medicine
DX: M1A.00X0 Idiopathic chronic gout, unspecified site, without tophus (tophi) (principal)
CPT/HCPCS: 36415; 80053; 84550

== ENCOUNTER → 2023-11-13 | Outpatient (CLI) | payer BC ==
[~2023-11-13] MED LIST changes: -LOSA100T32 PO; +LOSA100T33 PO
[2023-11-13 21:52] LABS: BASOPHILS % 0.7 % (0.0-2.0); HEMATOCRIT. 37.7 % (36.0-48.0); HEMOGLOBIN. 12.3 g/dL (12.0-16.0); LYMPHOCYTES % 32.4 % (20.0-50.0); MEAN CORPUSCULAR HEMOGLOBIN 31.1 pg (28.0-32.0); MEAN CORPUSCULAR HGB CONC 32.5 g/dL (31.0-37.0); MEAN CORPUSCULAR VOLUME 95.6 fL (81.0-99.0); MEAN PLATELET VOLUME 8.1 fl (7.4-10.4); NEUTROPHILS % 53.9 % (40.0-76.0); PLATELET 229 x1000/uL (130-400); RED BLOOD CELL COUNT 3.94 mill/uL (4.2-5.4); RED CELL DISTRIBUTION WIDTH 13.7 % (11.6-14.6); WHITE BLOOD COUNT 8.8 x1000/uL (4.5-11.0)
[2023-11-13 21:55] LABS: CLARITY URINE CLOUDY (CLEAR); COLOR URINE YELLOW (YELLOW); GLUCOSE URINE NEGATIVE (NEGATIVE); KETONES URINE NEGATIVE (NEGATIVE); LEUKOCYTE ESTERASE URINE TRACE (NEGATIVE); NITRITE URINE NEGATIVE (NEGATIVE); OCCULT BLOOD URINE NEGATIVE (NEGATIVE); PROTEIN URINE NEGATIVE (NEGATIVE); SPECIFIC GRAVITY URINE 1.011 (1.005-1.030); UROBILINOGEN URINE 0.2 E.U./dL (0.2-1.0)
[2023-11-13 22:07] LABS: ALANINE AMINOTRANSFERASE 35 IU/L (10-49); ALBUMIN 3.8 g/dL (3.2-4.8); ASPARTATE AMINOTRANSFERASE 41 IU/L (<34); BACTERIA URINE 1+; BILIRUBIN TOTAL 0.4 mg/dL (0.1-1.0); CALCIUM 9.5 mg/dL (8.7-10.4); CARBON DIOXIDE 28 mEq/L (21-32); CHLORIDE 105 mEq/L (98-107); CREATININE 1.2 mg/dL (0.6-1.0); GLUCOSE 121 mg/dL (70-105); PROTEIN TOTAL 7.8 g/dL (6.0-8.3); RBC URINE 0-2 /hpf (0-2); SODIUM 138 mEq/L (136-145); SQUAMOUS EPITHELIAL CELL URINE 1+ /lpf (RARE/1+); UREA NITROGEN BLOOD 18 mg/dL (9-23); URIC ACID 7.4 mg/dL (3.1-7.8)
== END | disposition home or self-care (01) ==
LOC: LAB 21:21
DX: I12.9 Hypertensive chronic kidney disease with stage 1 through stage 4 chronic kidney disease, or unspecified chronic kidney disease (principal); N18.9 Chronic kidney disease, unspecified; M1A.00X0 Idiopathic chronic gout, unspecified site, without tophus (tophi); R76.0 Raised antibody titer; R80.9 Proteinuria, unspecified
CPT/HCPCS: 36415; 80053; 81003; 82043; 82570; 84550; 85025

== ENCOUNTER → 2024-02-02 | Outpatient (CLI) | payer BC ==
[2024-02-02 20:59] LABS: BASOPHILS % 1.1 % (0.0-2.0); EOSINOPHILS % 5.1 % (0.0-5.0); HEMATOCRIT. 37.2 % (36.0-48.0); HEMOGLOBIN. 12.4 g/dL (12.0-16.0); LYMPHOCYTES % 30.8 % (20.0-50.0); MEAN CORPUSCULAR HEMOGLOBIN 31.7 pg (28.0-32.0); MEAN CORPUSCULAR HGB CONC 33.3 g/dL (31.0-37.0); MEAN PLATELET VOLUME 8.2 fl (7.4-10.4); MONOCYTES % 5.1 % (2.0-8.0); NEUTROPHILS % 57.9 % (40.0-76.0); PLATELET 238 x1000/uL (130-400); RED BLOOD CELL COUNT 3.92 mill/uL (4.2-5.4)
[2024-02-02 21:27] LABS: ALANINE AMINOTRANSFERASE 32 IU/L (10-49); ALBUMIN 4.4 g/dL (3.2-4.8); ASPARTATE AMINOTRANSFERASE 39 IU/L (<34); BILIRUBIN TOTAL 0.5 mg/dL (0.1-1.0); CALCIUM 9.4 mg/dL (8.7-10.4); CARBON DIOXIDE 28 mEq/L (21-32); CHLORIDE 104 mEq/L (98-107); CREATININE 1.2 mg/dL (0.6-1.0); GLUCOSE 163 mg/dL (70-105); POTASSIUM 3.7 mEq/L (3.5-5.1); PROTEIN TOTAL 7.5 g/dL (6.0-8.3); SODIUM 137 mEq/L (136-145); UREA NITROGEN BLOOD 20 mg/dL (9-23); URIC ACID 3.9 mg/dL (3.1-7.8)
[2024-02-02 21:33] LABS: CLARITY URINE CLEAR (CLEAR); COLOR URINE YELLOW (YELLOW); GLUCOSE URINE NEGATIVE (NEGATIVE); KETONES URINE NEGATIVE (NEGATIVE); LEUKOCYTE ESTERASE URINE TRACE (NEGATIVE); NITRITE URINE NEGATIVE (NEGATIVE); OCCULT BLOOD URINE NEGATIVE (NEGATIVE); PH URINE 6.5 (4.5-8.0); PROTEIN URINE TRACE (NEGATIVE); SPECIFIC GRAVITY URINE 1.012 (1.005-1.030); UROBILINOGEN URINE 0.2 E.U./dL (0.2-1.0)
[2024-02-02 21:37] LABS: ERYTHROCYTE SEDIMENTATION RATE 60 mm/hr (0-30)
[2024-02-02 21:42] LABS: FOLIC ACID (FOLATE) SERUM > 20.00 ng/mL (>5.38)
[2024-02-02 21:43] LABS: VITAMIN B12 SERUM > 2000 pg/mL (211-911)
[2024-02-02 21:46] LABS: BACTERIA URINE NONE SEEN; RBC URINE NONE SEEN /hpf (0-2); SQUAMOUS EPITHELIAL CELL URINE RARE /lpf (RARE/1+)
[2024-02-04 07:08] LABS: COMPLEMENT C3 143 mg/dL (82-167); COMPLEMENT C4 32 mg/dL (12-38)
[2024-02-04 09:07] LABS: *CREATININE RANDOM URINE 60.8 mg/dL (Not Estab.); MICROALBUMIN RANDOM URINE 100.8 ug/mL (Not Estab.)
== END | disposition home or self-care (01) ==
LOC: MRI 12:51
PROVIDERS: ATTEND Internal Medicine
DX: M50.322 Other cervical disc degeneration at C5-C6 level (principal); M48.03 Spinal stenosis, cervicothoracic region; R76.0 Raised antibody titer; R20.8 Other disturbances of skin sensation; R80.9 Proteinuria, unspecified; M1A.00X0 Idiopathic chronic gout, unspecified site, without tophus (tophi); M25.78 Osteophyte, vertebrae; R20.0 Anesthesia of skin
CPT/HCPCS: 36415; 72141; 80053; 81003; 82043; 82570; 82607; 82746; 84443; 84550; 85025; 85651; 86140; 86160

== ENCOUNTER → 2024-03-23 | Outpatient (CLI) | payer BC ==
[2024-03-23 12:28] LABS: CLARITY URINE CLEAR (CLEAR); COLOR URINE YELLOW (YELLOW); GLUCOSE URINE NEGATIVE (NEGATIVE); KETONES URINE NEGATIVE (NEGATIVE); LEUKOCYTE ESTERASE URINE NEGATIVE (NEGATIVE); NITRITE URINE NEGATIVE (NEGATIVE); OCCULT BLOOD URINE NEGATIVE (NEGATIVE); PROTEIN URINE NEGATIVE (NEGATIVE); SPECIFIC GRAVITY URINE 1.006 (1.005-1.030); UROBILINOGEN URINE 0.2 E.U./dL (0.2-1.0)
[2024-03-23 12:36] LABS: CARBON DIOXIDE 27 mEq/L (21-32); CHLORIDE 106 mEq/L (98-107); POTASSIUM 4.4 mEq/L (3.5-5.1); SODIUM 138 mEq/L (136-145)
[2024-03-23 12:37] LABS: CALCIUM 9.9 mg/dL (8.7-10.4)
[2024-03-23 12:41] LABS: URIC ACID 5.6 mg/dL (3.1-7.8)
[2024-03-23 12:42] LABS: CREATININE 1.1 mg/dL (0.6-1.0); GLUCOSE 92 mg/dL (70-105); TRIGLYCERIDE 80 mg/dL (0-150); UREA NITROGEN BLOOD 18 mg/dL (9-23)
[2024-03-23 12:43] LABS: ALANINE AMINOTRANSFERASE 30 IU/L (10-49); ASPARTATE AMINOTRANSFERASE 39 IU/L (<34); C REACTIVE PROTEIN QUANT 2.7 mg/L (0.0-3.0); LDL CHOLESTEROL 87 mg/dL (5-100)
[2024-03-23 12:44] LABS: ALBUMIN 4.1 g/dL (3.2-4.8); BILIRUBIN TOTAL 0.8 mg/dL (0.1-1.0); CHOLESTEROL 125 mg/dL (<200); HDL CHOLESTEROL 43 mg/dL (>65); PROTEIN TOTAL 7.3 g/dL (6.0-8.3)
[2024-03-23 12:48] LABS: BASOPHILS % 0.8 % (0.0-2.0); EOSINOPHILS % 6.7 % (0.0-5.0); HEMATOCRIT. 36.6 % (36.0-48.0); HEMOGLOBIN. 12.2 g/dL (12.0-16.0); LYMPHOCYTES % 30.9 % (20.0-50.0); MEAN CORPUSCULAR HEMOGLOBIN 31.4 pg (28.0-32.0); MEAN CORPUSCULAR HGB CONC 33.5 g/dL (31.0-37.0); MEAN CORPUSCULAR VOLUME 93.6 fL (81.0-99.0); MEAN PLATELET VOLUME 8.2 fl (7.4-10.4); MONOCYTES % 5.2 % (2.0-8.0); NEUTROPHILS % 56.4 % (40.0-76.0); PLATELET 207 x1000/uL (130-400); RED BLOOD CELL COUNT 3.91 mill/uL (4.2-5.4); WHITE BLOOD COUNT 7.4 x1000/uL (4.5-11.0)
[2024-03-23 13:46] LABS: ERYTHROCYTE SEDIMENTATION RATE 53 mm/hr (0-30)
[2024-03-24 08:08] LABS: *CREATININE RANDOM URINE 25.9 mg/dL (Not Estab.); MICROALBUMIN RANDOM URINE 27.9 ug/mL (Not Estab.)
== END | disposition home or self-care (01) ==
LOC: LAB 11:58
PROVIDERS: ATTEND Internal Medicine
DX: Z13.220 Encounter for screening for lipoid disorders (principal); Z13.1 Encounter for screening for diabetes mellitus; R20.8 Other disturbances of skin sensation; R76.0 Raised antibody titer; M1A.00X0 Idiopathic chronic gout, unspecified site, without tophus (tophi); R80.9 Proteinuria, unspecified
CPT/HCPCS: 36415; 80053; 80061; 81003; 82043; 82570; 83036; 84550; 85025; 85651; 86140

== ENCOUNTER → 2025-02-14 | Outpatient (CLI) | payer BC ==
[2025-02-14 17:48] LABS: BASOPHILS % 1.2 % (0.0-2.0); EOSINOPHILS % 6.3 % (0.0-5.0); HEMATOCRIT. 38.5 % (36.0-48.0); HEMOGLOBIN. 12.7 g/dL (12.0-16.0); LYMPHOCYTES % 31.9 % (20.0-50.0); MEAN CORPUSCULAR HEMOGLOBIN 31.5 pg (28.0-32.0); MEAN CORPUSCULAR HGB CONC 33.1 g/dL (31.0-37.0); MEAN CORPUSCULAR VOLUME 95.4 fL (81.0-99.0); MEAN PLATELET VOLUME 7.6 fl (7.4-10.4); MONOCYTES % 5.7 % (2.0-8.0); NEUTROPHILS % 54.9 % (40.0-76.0); PLATELET 232 x1000/uL (130-400); RED BLOOD CELL COUNT 4.03 mill/uL (4.2-5.4); RED CELL DISTRIBUTION WIDTH 14.3 % (11.6-14.6); WHITE BLOOD COUNT 8.5 x1000/uL (4.5-11.0)
[2025-02-14 18:01] LABS: CALCIUM 10.1 mg/dL (8.7-10.4); CARBON DIOXIDE 28 mEq/L (21-32); CHLORIDE 103 mEq/L (98-107); POTASSIUM 4.2 mEq/L (3.5-5.1); SODIUM 142 mEq/L (136-145)
[2025-02-14 18:05] LABS: CREATININE 1.2 mg/dL (0.6-1.0); GLUCOSE 88 mg/dL (70-105); URIC ACID 7.3 mg/dL (3.1-7.8)
[2025-02-14 18:06] LABS: LDL CHOLESTEROL 92 mg/dL (5-100); TRIGLYCERIDE 89 mg/dL (0-150); UREA NITROGEN BLOOD 20 mg/dL (9-23)
[2025-02-14 18:07] LABS: ALANINE AMINOTRANSFERASE 29 IU/L (10-49); ALBUMIN 4.3 g/dL (3.2-4.8); ASPARTATE AMINOTRANSFERASE 29 IU/L (<34); C REACTIVE PROTEIN QUANT 1.8 mg/L (0.0-3.0); CHOLESTEROL 145 mg/dL (<200); HDL CHOLESTEROL 44 mg/dL (>65)
[2025-02-14 18:08] LABS: BILIRUBIN TOTAL 0.5 mg/dL (0.1-1.0); PROTEIN TOTAL 8.1 g/dL (6.0-8.3)
[2025-02-14 19:06] LABS: ERYTHROCYTE SEDIMENTATION RATE 54 mm/hr (0-30)
[2025-02-14 21:27] LABS: CLARITY URINE CLEAR (CLEAR); COLOR URINE YELLOW (YELLOW); GLUCOSE URINE NEGATIVE (NEGATIVE); KETONES URINE NEGATIVE (NEGATIVE); LEUKOCYTE ESTERASE URINE NEGATIVE (NEGATIVE); NITRITE URINE NEGATIVE (NEGATIVE); OCCULT BLOOD URINE NEGATIVE (NEGATIVE); PROTEIN URINE TRACE (NEGATIVE); SPECIFIC GRAVITY URINE 1.006 (1.005-1.030); UROBILINOGEN URINE 0.2 E.U./dL (0.2-1.0)
[2025-02-14 22:58] LABS: BACTERIA URINE TRACE; RBC URINE NONE SEEN /hpf (0-2); SQUAMOUS EPITHELIAL CELL URINE FEW /lpf (RARE/1+); WBC URINE 0-2 /hpf (0-2)
[2025-02-16 09:10] LABS: *CREATININE RANDOM URINE 29.7 mg/dL (Not Estab.); MICROALBUMIN RANDOM URINE 91.2 ug/mL (Not Estab.)
== END | disposition home or self-care (01) ==
LOC: RAD 12:55
PROVIDERS: ATTEND Internal Medicine
DX: R05.9 Cough, unspecified (principal); I10 Essential (primary) hypertension; M1A.00X0 Idiopathic chronic gout, unspecified site, without tophus (tophi); R73.03 Prediabetes; R80.9 Proteinuria, unspecified
CPT/HCPCS: 36415; 71046; 80053; 80061; 81001; 81003; 82043; 82570; 83036; 84550; 85025; 85651; 86140

== ENCOUNTER → 2025-10-17 | Outpatient (CLI) | payer BC ==
[2025-10-17 21:27] LABS: BASOPHILS % 0.6 % (0.0-2.0); EOSINOPHILS % 6.1 % (0.0-5.0); HEMATOCRIT. 36.8 % (36.0-48.0); HEMOGLOBIN. 12.1 g/dL (12.0-16.0); LYMPHOCYTES % 34.1 % (20.0-50.0); MEAN PLATELET VOLUME 8.0 fl (7.4-10.4); MONOCYTES % 5.8 % (2.0-8.0); NEUTROPHILS % 53.4 % (40.0-76.0); PLATELET 234 x1000/uL (130-400); RED BLOOD CELL COUNT 3.95 mill/uL (4.2-5.4); RED CELL DISTRIBUTION WIDTH 14.2 % (11.6-14.6)
[2025-10-17 21:39] LABS: PROTEIN TOTAL 7.4 g/dL (6.0-8.3); UREA NITROGEN BLOOD 27 mg/dL (9-23)
[2025-10-17 21:40] LABS: ASPARTATE AMINOTRANSFERASE 31 IU/L (<34)
[2025-10-17 21:41] LABS: BILIRUBIN TOTAL 0.4 mg/dL (0.1-1.0)
[2025-10-17 21:55] LABS: CREATININE 1.6 mg/dL (0.6-1.0)
== END | disposition home or self-care (01) ==
LOC: LAB 14:59
PROVIDERS: ATTEND Internal Medicine
DX: I10 Essential (primary) hypertension (principal); R80.9 Proteinuria, unspecified; M1A.00X0 Idiopathic chronic gout, unspecified site, without tophus (tophi); R73.03 Prediabetes; E66.9 Obesity, unspecified
CPT/HCPCS: 80053; 83036; 84550; 85025